=== PATIENT | female | born 1985 | race Caucasian/White ===

== ENCOUNTER 2016-07-26 19:10 | Emergency (ER) | payer OTHER ==
[2016-07-26] MEDS ORDERED: METOCLOPRAMIDE 10 MG TAB ONE (20:11)
[2016-07-26] MEDS ORDERED: DIPHENHYDRAMINE 25 MG CAP ONE (20:11)
== END 2016-07-26 21:17 | disposition home or self-care (01) ==
LOC: ER 19:10
DX: Z04.1 Encounter for examination and observation following transport accident (principal); V49.59XA Passenger injured in collision with other motor vehicles in traffic accident, initial encounter
CPT/HCPCS: 72050; 72100